=== PATIENT | male | born 1950 ===

== ENCOUNTER 2017-03-18 12:00 | Day surgery (SDC) | payer OTHER ==
[~2017-03-18 12:00] MED LIST: ALLEGRA ALLERG180 MG PO; AMBIEN10 MG PO; ASPIR 8181 MG PO; DIOVAN160 M1 PO; GABAPENTIN400 MG PO; MULTIVITAMIN; PROVASTATIN PO; WELLBUTRIN XL300 MG PO
[2017-03-18] MEDS ORDERED: PERCOCET 5-3251 EACH PO (15:40)
[2017-03-18] MEDS ORDERED: ZOFRAN ODT4 MG PO (15:40)
[2017-03-18] MEDS ORDERED: MIRALAX17 GM PO (15:40)
[2017-03-18] MEDS ORDERED: KETO10TA2 PO (15:40)
== END 2017-03-18 18:00 | disposition home or self-care (01) ==
LOC: CIR.AMB 12:00
DX: K40.20 Bilateral inguinal hernia, without obstruction or gangrene, not specified as recurrent (principal); K42.9 Umbilical hernia without obstruction or gangrene